=== PATIENT | male | born 1970 | race Caucasian/White ===

== ENCOUNTER 2017-03-23 08:09 | Observation (INO) | payer OTHER ==
[~2017-03-23] VITALS: Ht 182.9 cm; Wt 113.3 kg
[~2017-03-23 08:09] MED LIST: ADVAIR 250/501 DISK IH; ALDACTONE50 MG PO; ASPIR-LOW81 MG PO; ASPIRIN325 MG PO; ATARAX,VISTARIL25 MG PO; ATORVASTATIN CA40 MG PO; CELEXA20 MG PO; CLOPIDOGREL75 MG PO; COREG6.25 MG PO; DICLOFENAC SODI75 MG PO; DOXYCYCLINE HY100 M4 PO; ENULOSE10 GM/15 M PO; EXCEDRIN MIGRA1 EAC3 PO; GABAPENTIN400 MG PO; IMDUR30 MG PO; IMDUR60 MG PO; K-DUR20 MEQ PO; LASIX40 MG PO; LO-DOSE ASPIRIN81 M2 PO; MORPHINE SULFAT15 MG PO; MORPHINE SULFAT30 M2 PO; NEURONTIN300 MG PO; NICODERM CQ1 EAC2 TD; NICOTINE PATCH1 EAC2 TD; NITROSTAT0.4 MG SL; OXYCODONE HCL15 MG PO; OXYCODONE5 MG PO; PREDNISONE10 MG PO; PRILOSEC20 MG PO; PROAIR HFA8.5 GM IH; PROTONIX40 MG PO; SIMVASTATIN40 MG PO; SIMVASTATIN80 MG PO; SPIRIVA RESPIMAT4 GM IH; XANAX1 MG PO; XANAX2 MG PO; ZESTRIL,PRINIVIL5 MG PO; ZESTRIL10 MG PO
[2017-03-23 09:32] LABS: EOSINOPHIL (%) 1.2 % (0-5); EOSINOPHIL COUNT 0.1 K/uL (0-0.3); HEMATOCRIT 43.5 % (38.0-50.0); IMMATURE GRANULOCYTE (%) 0.5 % (0.0-0.7); INSTRUMENT ABS NEUTROPHIL CT 5.2 K/uL; LYMPHOCYTE COUNT 1.8 K/uL (1.0-2.8); MCH 29.2 PG (29.0-34.0); MCHC 32.9 G/DL (30.0-36.0); MCV 88.8 FL (86-99); MEAN PLAT.VOLUME 8.6 uM^3 (9.0-12.4); MONOCYTE COUNT 0.7 K/uL (0-0.8); NEUTROPHIL (%) 66.5 % (45-76); NEUTROPHIL COUNT 5.2 K/uL (1.8-6.4); PLATELET COUNT 259 K/uL (156-360); RBC DIS.WIDTH-CV 13.4 % (11.8-14.6); RBC DIS.WIDTH-SD 43.8 % (39-53); WHITE BLOOD COUNT 7.8 K/uL (4.1-10.2)
[2017-03-23 09:42] LABS: CHLORIDE 105 mEq/L (99-109); POTASSIUM 4.6 mEq/L (3.7-5.4); SODIUM 138 mEq/L (136-147)
[2017-03-23 09:44] LABS: GLUCOSE 103 mg/dL (70-99)
[2017-03-23 09:46] LABS: ANION GAP 9 MEQ/L (2-14)
[2017-03-23 09:48] LABS: GFR ESTIMATE (CALCULATED) > 59 mL/min/
[2017-03-23 09:49] LABS: UREA NITROGEN (BUN) 15 mg/dL (9-23)
[2017-03-23 09:53] LABS: TROP-I INTERPRETATION NEGATIVE; TROPONIN-I < 0.01 ng/mL (0.0-0.30)
[2017-03-23 13:39] VITALS: BP 118/67
[2017-03-23 14:57] LABS: D-DIMER ELISA 0.26 mg/L FEU (< 0.57)
[2017-03-23] MEDS ORDERED: COREG12.5 M1 PO (15:15)
[2017-03-23 15:33] VITALS: BP 116/70
[2017-03-23 15:57] LABS: TROP-I INTERPRETATION NEGATIVE; TROPONIN-I < 0.01 ng/mL (0.0-0.30)
[2017-03-23 20:33] VITALS: BP 110/55
[2017-03-23 21:45] LABS: TROP-I INTERPRETATION NEGATIVE; TROPONIN-I < 0.01 ng/mL (0.0-0.30)
[2017-03-23] MEDS ORDERED: NITROSTAT0.4 MG SL (21:52)
== END 2017-03-23 22:45 | disposition home or self-care (01) ==
LOC: EME 08:09 → EDOF 11:53 → 5WEST 13:30
PROVIDERS: Emergency Medicine; Internal Medicine; Physician Assistant
DX: R07.89 Other chest pain (principal); I25.810 Atherosclerosis of coronary artery bypass graft(s) without angina pectoris; I25.10 Atherosclerotic heart disease of native coronary artery without angina pectoris; Z95.1 Presence of aortocoronary bypass graft; M54.5 Low back pain; G89.4 Chronic pain syndrome; E11.9 Type 2 diabetes mellitus without complications; E78.5 Hyperlipidemia, unspecified; I10 Essential (primary) hypertension; J45.909 Unspecified asthma, uncomplicated; M47.892 Other spondylosis, cervical region; F41.9 Anxiety disorder, unspecified; F17.200 Nicotine dependence, unspecified, uncomplicated
CPT/HCPCS: 71010; 80048; 82948; 84484; 85025; 85379; 93005; 94640; 99202; 99281; 99285; G0378; J1644; J2270; Q0177

== ENCOUNTER 2018-04-19 14:54 | Emergency (ER) | payer OTHER ==
[~2018-04-19] VITALS: Ht 182.9 cm; Wt 127.2 kg
[~2018-04-19 14:54] MED LIST changes: +COREG12.5 M1 PO
[2018-04-19 15:44] LABS: HEMATOCRIT 41.7 % (38.0-50.0); HEMOGLOBIN 14.7 G/DL (12.5-16.6); MCH 31.2 PG (29.0-34.0); MCHC 35.3 G/DL (30.0-36.0); MCV 88.5 FL (86-99); PLATELET COUNT 223 K/uL (156-360); RBC DIS.WIDTH-CV 13.1 % (11.8-14.6); RBC DIS.WIDTH-SD 42.9 % (39-53); RED BLOOD COUNT 4.71 M/uL (4.00-5.50); WHITE BLOOD COUNT 6.6 K/uL (4.1-10.2)
[2018-04-19 15:52] LABS: PTT 20.4 SEC (25-37)
[2018-04-19 15:54] LABS: CHLORIDE 103 mEq/L (99-109); SODIUM 137 mEq/L (136-147)
[2018-04-19 15:56] LABS: GLUCOSE 86 mg/dL (70-99)
[2018-04-19 16:00] LABS: CREATININE 0.7 mg/dL (0.6-1.3); GFR ESTIMATE (CALCULATED) > 59 mL/min/ (58.99-99999)
[2018-04-19 16:01] LABS: UREA NITROGEN (BUN) 11 mg/dL (9-23)
[2018-04-19] MEDS ORDERED: KEFLEX500 MG PO (16:33)
[2018-04-19] MEDS ORDERED: DOXYCYCLINE HY100 MG PO (16:33)
[2018-04-19] MEDS ORDERED: COUMADIN5 MG PO (16:33)
[2018-04-19] MEDS ORDERED: LOVENOX120 MG/0.8 SC (16:33)
[2018-04-19 17:50] VITALS: BP 141/56
== END 2018-04-19 18:09 | disposition home or self-care (01) ==
LOC: EME 14:54
PROVIDERS: Emergency Medicine
DX: I82.441 Acute embolism and thrombosis of right tibial vein (principal); L03.115 Cellulitis of right lower limb; Z79.02 Long term (current) use of antithrombotics/antiplatelets; E11.9 Type 2 diabetes mellitus without complications; I25.2 Old myocardial infarction; E78.5 Hyperlipidemia, unspecified; F32.9 Major depressive disorder, single episode, unspecified; F41.9 Anxiety disorder, unspecified; I10 Essential (primary) hypertension; J44.9 Chronic obstructive pulmonary disease, unspecified; K21.9 Gastro-esophageal reflux disease without esophagitis; K74.60 Unspecified cirrhosis of liver; Z95.1 Presence of aortocoronary bypass graft; Z79.82 Long term (current) use of aspirin; F17.200 Nicotine dependence, unspecified, uncomplicated
CPT/HCPCS: 80048; 85027; 85610; 85730; 93971; 99281; 99284; J1650

== ENCOUNTER 2018-05-26 11:13 | Emergency (ER) | payer OTHER ==
[~2018-05-26] VITALS: Ht 182.9 cm; Wt 122.9 kg
[~2018-05-26 11:13] MED LIST changes: +COUMADIN5 MG PO; +DOXYCYCLINE HY100 MG PO; +KEFLEX500 MG PO; +LOVENOX120 MG/0.8 SC
[2018-05-26 13:22] LABS: HEMATOCRIT 43.7 % (38.0-50.0); HEMOGLOBIN 15.5 G/DL (12.5-16.6); MCH 31.3 PG (29.0-34.0); MCHC 35.5 G/DL (30.0-36.0); MCV 88.1 FL (86-99); PLATELET COUNT 233 K/uL (156-360); RBC DIS.WIDTH-CV 13.3 % (11.8-14.6); RBC DIS.WIDTH-SD 43.2 % (39-53); RED BLOOD COUNT 4.96 M/uL (4.00-5.50)
[2018-05-26 13:30] LABS: INTER. NORMALIZED RATIO 2.1
[2018-05-26 13:33] LABS: PTT 38.5 SEC (25-37)
[2018-05-26 14:42] LABS: CHLORIDE 105 MEQ/L (99-109); CREATININE 0.7 MG/DL (0.6-1.3); GFR ESTIMATE (CALCULATED) > 59 mL/min/ (58.99-99999); GLUCOSE 101 mg/dL (70-99); POTASSIUM 4.1 MEQ/L (3.7-5.4); SODIUM 137 MEQ/L (136-147); UREA NITROGEN (BUN) 14 mg/dL (9-23)
[2018-05-26 15:23] VITALS: BP 135/65
== END 2018-05-26 15:25 | disposition home or self-care (01) ==
LOC: EME 11:13
PROVIDERS: Emergency Medicine
DX: R60.9 Edema, unspecified (principal); I10 Essential (primary) hypertension; E78.5 Hyperlipidemia, unspecified; E11.9 Type 2 diabetes mellitus without complications; J44.9 Chronic obstructive pulmonary disease, unspecified; K21.9 Gastro-esophageal reflux disease without esophagitis; R56.9 Unspecified convulsions; K74.60 Unspecified cirrhosis of liver; F32.9 Major depressive disorder, single episode, unspecified; I25.2 Old myocardial infarction; F17.200 Nicotine dependence, unspecified, uncomplicated; Z79.82 Long term (current) use of aspirin; Z86.718 Personal history of other venous thrombosis and embolism; Z87.19 Personal history of other diseases of the digestive system; Z95.1 Presence of aortocoronary bypass graft; Z88.6 Allergy status to analgesic agent
CPT/HCPCS: 80048; 85027; 85610; 85730; 93971; 99281; 99284